=== PATIENT | female | born 1995 | race Caucasian/White ===

== ENCOUNTER 2017-08-31 19:24 | Emergency (ER) | payer BC ==
[~2017-08-31] VITALS: Ht 165.1 cm; Wt 72.6 kg
== END 2017-08-31 21:47 | disposition home or self-care (01) ==
LOC: ER 19:24
DX: S61.211A Laceration without foreign body of left index finger without damage to nail, initial encounter (principal); W45.8XXA Other foreign body or object entering through skin, initial encounter; Y93.89 Activity, other specified; Y92.89 Other specified places as the place of occurrence of the external cause; Y99.8 Other external cause status

== ENCOUNTER → 2017-09-08 | Emergency (ER) | payer BC | END | disposition home or self-care (01) | LOC: ER 17:51 | DX: Z48.02 Encounter for removal of sutures (principal) ==